=== PATIENT | male | born 1975 | race Caucasian/White ===

== ENCOUNTER 2018-06-02 19:16 | Emergency (ER) | payer SELFPAY ==
[~2018-06-02] VITALS: Ht 175.3 cm; Wt 117.9 kg
[2018-06-02 19:18] VITALS: BP 00/000; Ht 175.3 cm; Wt 117.9 kg
== END 2018-06-02 23:56 | disposition expired ==
LOC: EDBD 19:16 → ED 19:16
DX: I46.9 Cardiac arrest, cause unspecified (principal); S09.8XXA Other specified injuries of head, initial encounter; X58.XXXA Exposure to other specified factors, initial encounter; Y93.89 Activity, other specified; Y92.89 Other specified places as the place of occurrence of the external cause; Y99.8 Other external cause status
CPT/HCPCS: Q0092